=== PATIENT | male | born 1940 | race Caucasian/White ===

== ENCOUNTER 2020-08-01 18:53 | Inpatient (IN) | payer OTHER, MEDICAID ==
[~2020-08-01] VITALS: Ht 177.8 cm; Wt 83.9 kg
[2020-08-01] MEDS ORDERED: SODIUM CHLORIDE 0.9% 1,000 ML IVB ONE (19:30)
[2020-08-01 20:35] LABS: Basophils # (auto) 0 10 ^3/uL (0-0.2); Basophils % (auto) 0.2 % (0.0-2.0); Eosinophils # (auto) 0 10 ^3/uL (0-0.8); Hematocrit 44.7 % (41.0-53.0); Hemoglobin 15.1 g/dL (13.5-17.5); Lymphocytes # (auto) 1.3 10 ^3/uL (0.4-5.4); Lymphocytes % (auto) 5.8 % (10.0-50.0); Mean Corpuscular Hemoglobin 30.6 pg (28.0-32.0); Mean Corpuscular Hgb Conc. 33.7 g/dL (32.0-36.0); Mean Corpuscular Volume 90.8 fL (80.0-100.0); Monocytes # (auto) 2.4 10 ^3/uL (0-1.3); Monocytes % (auto) 10.8 % (0.0-12.0); Neutrophils # (auto) 18.4 10 ^3/uL (1.6-8.6); Neutrophils % (auto) 83.2 % (37.0-80.0); Nucleated Red Blood Cells % 0.1 %; Red Blood Cells 4.92 10^6/uL (4.5-5.90); Red Cell Distribution Width 14.4 % (11.8-14.3); White Blood Cell 22.1 10^3/uL (4.4-10.8)
[2020-08-01 20:51] LABS: Albumin 3.4 g/dL (3.4-5.0); Anion Gap 8 (5-15); Blood Urea Nitrogen 35 mg/dL (7-18); Calcium 8.9 mg/dL (8.5-10.1); Carbon Dioxide 24 mmol/L (21-32); Chloride 111 mmol/L (98-107); Glucose 110 mg/dL (74-106); Magnesium 2.3 mg/dL (1.6-2.6); Potassium 3.9 mmol/L (3.5-5.1); Sodium 143 mmol/L (136-145)
[2020-08-01 20:55] LABS: Alanine Aminotransferase 42 U/L (16-61); Alkaline Phosphatase 98 U/L (45-117); Aspartate Aminotransferase 106 U/L (15-37); BUN/Creatinine Ratio 21.3; Bilirubin, Total 1.7 mg/dL (0.2-1.0); Blood Alcohol < 3.0 mg/dL (0-5); GFR African American 52 mL/min; GFR Non-African American 43 mL/min; Total Protein 7.3 g/dL (6.4-8.2)
[2020-08-01] MEDS ORDERED: fentaNYL CITRATE 100 MCG/2 ML VL IV ONE (22:15)
[2020-08-01 23:04] LABS: Urine Amorphous Crystal FEW /hpf (None Seen); Urine Bacteria FEW /hpf (None Seen); Urine Blood 2+ /uL (Negative); Urine Hyaline Cast FEW /lpf (0 - 2); Urine Mucus FEW (None Seen); Urine Specific Gravity 1.022 (1.001-1.035); Urine WBC 33 /hpf (0 - 3)
[2020-08-01 23:07] LABS: Amphetamine Screen, Urine NEGATIVE (NEGATIVE); Barbiturate Scree,Urine NEGATIVE (NEGATIVE); Benzodiazephine Screen, Urine NEGATIVE (NEGATIVE); Cannabinoid Screen, Urine NEGATIVE (NEGATIVE); Cocaine Screen, Urine NEGATIVE (NEGATIVE); Opiate Scree,Urine NEGATIVE (NEGATIVE); Phencyclidine Screen, Urine NEGATIVE (NEGATIVE)
[2020-08-02] MEDS ORDERED: cefTRIAXone 1GM/50ML D5W 50 ML IV ONE (01:15)
[2020-08-02] MEDS ORDERED: HYDROcodone-ACET 5/325MG TAB PO PRN (03:00)
[2020-08-02] MEDS ORDERED: ACETAMINOPHEN 325 MG TAB PO PRN (03:00)
[2020-08-02] MEDS: SODIUM CHLORIDE 0.9% 1,000 ML IV SCH ×2 (03:00→17:10)
[2020-08-02] MEDS ORDERED: ONDANSETRON HCL 4 MG/2 ML VIAL IV PRN (03:00)
[2020-08-02] MEDS: PANTOPRAZOLE 40 MG TAB PO SCH (08:25)
[2020-08-02] MEDS: cefTRIAXone 1GM/50ML D5W 50 ML IV SCH (08:25)
[2020-08-02] MEDS: MORPHINE SULFATE 4 MG/ML SYR/VIAL IV PRN (10:36)
[2020-08-02] MEDS ORDERED: ACE3T PO (11:10)
[2020-08-02 12:34] LABS: Basophils # (auto) 0 10 ^3/uL (0-0.2); Basophils % (auto) 0.2 % (0.0-2.0); Eosinophils # (auto) 0 10 ^3/uL (0-0.8); Hematocrit 41.1 % (41.0-53.0); Hemoglobin 13.7 g/dL (13.5-17.5); Lymphocytes # (auto) 1.7 10 ^3/uL (0.4-5.4); Lymphocytes % (auto) 9.3 % (10.0-50.0); Mean Corpuscular Hemoglobin 30.5 pg (28.0-32.0); Mean Corpuscular Hgb Conc. 33.3 g/dL (32.0-36.0); Mean Corpuscular Volume 91.5 fL (80.0-100.0); Monocytes # (auto) 1.9 10 ^3/uL (0-1.3); Monocytes % (auto) 10.5 % (0.0-12.0); Neutrophils # (auto) 14.4 10 ^3/uL (1.6-8.6); Red Blood Cells 4.49 10^6/uL (4.5-5.90); Red Cell Distribution Width 14.1 % (11.8-14.3)
[2020-08-02 12:51] LABS: Albumin 2.9 g/dL (3.4-5.0); Calcium 8.2 mg/dL (8.5-10.1); Potassium 3.7 mmol/L (3.5-5.1)
[2020-08-02 12:56] LABS: BUN/Creatinine Ratio 31.5; Bilirubin, Total 1.1 mg/dL (0.2-1.0); Total Protein 6.5 g/dL (6.4-8.2)
[2020-08-02] MEDS ORDERED: LORazepam 2MG/ML-1ML VIAL IV PRN (13:30)
[2020-08-02] MEDS ORDERED: HALOPERIDOL LACTATE 5 MG/ML INJ VIAL IM PRN (20:15)
[2020-08-02 21:36] LABS: Folate (Folic Acid) 8.98 ng/mL (5.38-24)
[2020-08-02] MEDS: HEPARIN SODIUM (PORCINE) 5000 UNITS/ML 1ML VIAL SC SCH (22:42)
[2020-08-03] MEDS: SODIUM CHLORIDE 0.9% 1,000 ML IV SCH (05:45)
[2020-08-03 07:10] LABS: Basophils # (auto) 0 10 ^3/uL (0-0.2); Basophils % (auto) 0.2 % (0.0-2.0); Eosinophils # (auto) 0 10 ^3/uL (0-0.8); Eosinophils % (auto) 0.2 % (0.0-7.0); Hematocrit 40.1 % (41.0-53.0); Hemoglobin 13.7 g/dL (13.5-17.5); Lymphocytes # (auto) 1.5 10 ^3/uL (0.4-5.4); Lymphocytes % (auto) 13.3 % (10.0-50.0); Mean Corpuscular Hemoglobin 30.8 pg (28.0-32.0); Mean Corpuscular Hgb Conc. 34.1 g/dL (32.0-36.0); Mean Corpuscular Volume 90.3 fL (80.0-100.0); Monocytes # (auto) 1.2 10 ^3/uL (0-1.3); Monocytes % (auto) 10.8 % (0.0-12.0); Neutrophils # (auto) 8.3 10 ^3/uL (1.6-8.6); Neutrophils % (auto) 75.5 % (37.0-80.0); Nucleated Red Blood Cells % 0.1 %; Red Blood Cells 4.44 10^6/uL (4.5-5.90)
[2020-08-03 07:34] LABS: Albumin 2.9 g/dL (3.4-5.0); Calcium 8.5 mg/dL (8.5-10.1); Potassium 3.6 mmol/L (3.5-5.1)
[2020-08-03 07:48] LABS: BUN/Creatinine Ratio 34.2; Bilirubin, Total 1.1 mg/dL (0.2-1.0); Total Protein 6.4 g/dL (6.4-8.2)
[2020-08-03] MEDS ORDERED: DEXTROSE (50%) 50ML SYRG IV ONE (10:00)
[2020-08-03] MEDS: cefTRIAXone 1GM/50ML D5W 50 ML IV SCH (11:12)
[2020-08-03] MEDS: HEPARIN SODIUM (PORCINE) 5000 UNITS/ML 1ML VIAL SC SCH ×2 (11:12→22:53)
[2020-08-03] MEDS: PANTOPRAZOLE 40 MG TAB PO SCH (11:12)
[2020-08-03] MEDS ORDERED: CYANOCOBALAMIN (B-12) 1000 MCG/1 ML VIAL IM ONE (12:45)
[2020-08-03] MEDS: D5W/SOD CHL 0.45% 1,000 ML IV SCH (13:34)
[2020-08-03] MEDS ORDERED: HEPARIN SODIUM (PORCINE) 5000 UNITS/ML 1ML VIAL ONE (22:26)
[2020-08-04] MEDS: D5W/SOD CHL 0.45% 1,000 ML IV SCH ×2 (02:35→16:19)
[2020-08-04 08:08] LABS: Basophils # (auto) 0 10 ^3/uL (0-0.2); Basophils % (auto) 0.3 % (0.0-2.0); Eosinophils # (auto) 0 10 ^3/uL (0-0.8); Eosinophils % (auto) 0.2 % (0.0-7.0); Hematocrit 36.8 % (41.0-53.0); Hemoglobin 12.8 g/dL (13.5-17.5); Lymphocytes # (auto) 0.9 10 ^3/uL (0.4-5.4); Lymphocytes % (auto) 9.8 % (10.0-50.0); Mean Corpuscular Hemoglobin 31.6 pg (28.0-32.0); Mean Corpuscular Hgb Conc. 34.9 g/dL (32.0-36.0); Mean Corpuscular Volume 90.5 fL (80.0-100.0); Monocytes # (auto) 1.2 10 ^3/uL (0-1.3); Monocytes % (auto) 12.1 % (0.0-12.0); Neutrophils # (auto) 7.4 10 ^3/uL (1.6-8.6); Neutrophils % (auto) 77.6 % (37.0-80.0); Nucleated Red Blood Cells % 0.1 %; Red Blood Cells 4.06 10^6/uL (4.5-5.90); Red Cell Distribution Width 14.1 % (11.8-14.3); White Blood Cell 9.5 10^3/uL (4.4-10.8)
[2020-08-04] MEDS ORDERED: BUPIVACAINE W/ EPINEPH 0.25% INJ 50ML MDV ONE (08:19)
[2020-08-04] MEDS ORDERED: VANCOMYCIN HCL 1000 MG VL ONE (08:26)
[2020-08-04 08:28] LABS: Albumin 2.5 g/dL (3.4-5.0); BUN/Creatinine Ratio 23.3; Calcium 8.2 mg/dL (8.5-10.1); Potassium 3.1 mmol/L (3.5-5.1)
[2020-08-04 08:30] LABS: Total Protein 5.8 g/dL (6.4-8.2)
[2020-08-04] MEDS: PANTOPRAZOLE 40 MG TAB PO SCH (09:08)
[2020-08-04] MEDS: CYANOCOBALAMIN 500 MCG TAB PO SCH (09:09)
[2020-08-04] MEDS: HEPARIN SODIUM (PORCINE) 5000 UNITS/ML 1ML VIAL SC SCH (09:09)
[2020-08-04] MEDS: cefTRIAXone 1GM/50ML D5W 50 ML IV SCH (09:09)
[2020-08-04] MEDS ORDERED: POTASSIUM CHL 20 Meq TABLET PO ONE (09:15)
[2020-08-04] MEDS ORDERED: ceFAZolin 1GM/50ML 100 ML IV ONE (10:18)
[2020-08-04] MEDS ORDERED: TETRACAINE 1% INJ 2 ML VIAL IJ ONE (10:33)
[2020-08-04] MEDS ORDERED: MEPERIDINE HCL (25 MG/ML) 1ML VIAL ONE (10:37)
[2020-08-04] MEDS ORDERED: MIDAZOLAM HCL 2MG/2ML 2ml VIAL (1mg/ml) ONE ×2 (10:38→11:26)
[2020-08-04] MEDS ORDERED: fentaNYL CITRATE 100 MCG/2 ML VL ONE (10:38)
[2020-08-04] MEDS ORDERED: PROPOFOL 10 MG/ML 20 ML IV ONE (10:42)
[2020-08-04] MEDS ORDERED: DexAMETHasone SOD PHOS 10MG/1ML VIAL INJ ONE (10:42)
[2020-08-04] MEDS ORDERED: MORPHINE SULF PF 2 MG/2 ML SYRG ONE (10:42)
[2020-08-04] MEDS: TRANEXAMIC ACID 20 ML ONE ×2 (11:15→12:20)
[2020-08-04] MEDS ORDERED: ePHEDrine SULFATE 50 MG/ML AMP IV PRN (11:15)
[2020-08-04] MEDS ORDERED: ONDANSETRON HCL 4 MG/2 ML VIAL IV PRN (11:15)
[2020-08-04] MEDS ORDERED: LABETALOL HCL 5 MG/ML 4ML SYRINGE IV PRN (11:15)
[2020-08-04] MEDS ORDERED: HYDROmorphone HCL 2 MG/ML VL IV PRN (11:15)
[2020-08-04] MEDS ORDERED: MORPHINE SULFATE 4 MG/ML SYR/VIAL IV PRN (11:15)
[2020-08-04] MEDS ORDERED: ePHEDrine SULFATE 50 MG/ML AMP ONE (11:52)
[2020-08-04] MEDS: ceFAZolin 1GM/50ML 50 ML IV SCH ×2 (12:30→17:19)
[2020-08-04] MEDS: LACTATED RINGER'S 1,000 ML IV SCH ×2 (12:30→21:12)
[2020-08-04] MEDS: SODIUM CHLOR 0.9% PF (SALINE LOCK) 10ML VIAL/SYR IV SCH ×2 (14:00→21:12)
[2020-08-04] MEDS: CIPROFLOXACIN 400MG/200ML 200 ML IV SCH ×2 (15:45→21:12)
[2020-08-04] MEDS: MORPHINE SULFATE 4 MG/ML SYR/VIAL IV PRN ×2 (16:42→21:11)
[2020-08-04] MEDS: ENOXAPARIN SOD 30 MG/0.3 ML SYRINGE SC SCH (21:12)
[2020-08-05] MEDS: ceFAZolin 1GM/50ML 50 ML IV SCH (00:48)
[2020-08-05] MEDS: MORPHINE SULFATE 4 MG/ML SYR/VIAL IV PRN (00:56)
[2020-08-05 05:00] VITALS: BP 149/78
[2020-08-05] MEDS: SODIUM CHLOR 0.9% PF (SALINE LOCK) 10ML VIAL/SYR IV SCH ×2 (05:43→10:34)
[2020-08-05] MEDS: D5W/SOD CHL 0.45% 1,000 ML IV SCH (05:43)
[2020-08-05 06:44] LABS: Albumin 2.5 g/dL (3.4-5.0); Potassium 3.6 mmol/L (3.5-5.1)
[2020-08-05 06:49] LABS: BUN/Creatinine Ratio 20.3; Bilirubin, Total 0.9 mg/dL (0.2-1.0); Total Protein 6.3 g/dL (6.4-8.2)
[2020-08-05 07:32] LABS: Basophils # (auto) 0 10 ^3/uL (0-0.2); Eosinophils # (auto) 0 10 ^3/uL (0-0.8); Hematocrit 37.1 % (41.0-53.0); Hemoglobin 12.7 g/dL (13.5-17.5); Lymphocytes # (auto) 0.4 10 ^3/uL (0.4-5.4); Lymphocytes % (auto) 1.9 % (10.0-50.0); Mean Corpuscular Hemoglobin 30.6 pg (28.0-32.0); Mean Corpuscular Hgb Conc. 34.3 g/dL (32.0-36.0); Mean Corpuscular Volume 89.2 fL (80.0-100.0); Monocytes # (auto) 1.7 10 ^3/uL (0-1.3); Monocytes % (auto) 9.3 % (0.0-12.0); Neutrophils # (auto) 16.8 10 ^3/uL (1.6-8.6); Neutrophils % (auto) 88.8 % (37.0-80.0); Red Blood Cells 4.16 10^6/uL (4.5-5.90); Red Cell Distribution Width 13.8 % (11.8-14.3); White Blood Cell 18.9 10^3/uL (4.4-10.8)
[2020-08-05] MEDS: LACTATED RINGER'S 1,000 ML IV SCH ×2 (08:05→10:34)
[2020-08-05] MEDS: CIPROFLOXACIN 400MG/200ML 200 ML IV SCH (10:33)
[2020-08-05] MEDS: PANTOPRAZOLE 40 MG TAB PO SCH (10:33)
[2020-08-05] MEDS: ENOXAPARIN SOD 30 MG/0.3 ML SYRINGE SC SCH (10:34)
[2020-08-05] MEDS: CYANOCOBALAMIN 500 MCG TAB PO SCH (10:34)
== END 2020-08-05 15:00 | DRG 853 ==
LOC: ER 18:53 → EDBD 18:53 → OVERFLOW 18:54 → WEST WING 08-04 07:47 → CENTRAL 08-05 11:50
PROVIDERS: ADMIT Nurse Practitioner; ATTEND Hospitalist
PROC: 0SN90ZZ Release Right Hip Joint, Open Approach (ICD-10-PCS; 2020-08-04)
PROC: 0SRR019 Replacement of Right Hip Joint, Femoral Surface with Metal Synthetic Substitute, Cemented, Open Approach (ICD-10-PCS; principal; 2020-08-04 10:43)
DX: A41.9 Sepsis, unspecified organism (principal); S72.011A Unspecified intracapsular fracture of right femur, initial encounter for closed fracture; G93.41 Metabolic encephalopathy; N17.0 Acute kidney failure with tubular necrosis; N39.0 Urinary tract infection, site not specified; E16.2 Hypoglycemia, unspecified; Z20.822 Contact with and (suspected) exposure to COVID-19; E53.8 Deficiency of other specified B group vitamins; F17.200 Nicotine dependence, unspecified, uncomplicated; I10 Essential (primary) hypertension; I48.91 Unspecified atrial fibrillation; M24.551 Contracture, right hip; I25.10 Atherosclerotic heart disease of native coronary artery without angina pectoris; W01.0XXA Fall on same level from slipping, tripping and stumbling without subsequent striking against object, initial encounter; Z86.73 Personal history of transient ischemic attack (TIA), and cerebral infarction without residual deficits; Y93.89 Activity, other specified; Y92.89 Other specified places as the place of occurrence of the external cause; Y99.8 Other external cause status; Z79.899 Other long term (current) drug therapy
CPT/HCPCS: 36415; 51702; 70450; 70551; 71045; 72170; 72192; 73501; 80053; 80307; 80320; 81001; 82607; 82746; 82962; 83605; 83735; 84443; 84484; 85025; 85610; 86850; 86900; 86901; 87040; 87086; 87088; 87186; 87426; 93005; 93306; 95819; 96361; 96374; 96375; A4565; G0378; J0690; J0696; J1100; J2250; J2405; J2704